=== PATIENT | male | born 1970 | race African-American/Black ===

== ENCOUNTER 2020-03-26 13:03 | Outpatient (CLI) | payer BC, OTHER ==
--- NOTE | 2020-03-26 13:06 | XRAY Report ---
PROCEDURE: Wrist 3 View BILAT INDICATIONS: R AND L WRIST PX TECHNIQUE: 3 views of the bilateral wrists were acquired (. COMPARISON: None acute FINDINGS: Bones: No fractures or dislocations. No suspicious bony lesions. Note is made of bilateral distal radius fracture fixation comprised of fixation plates and transverse multiple fixation screws greater on the right than the left. Near-anatomic alignment established across the fracture planes. Scaphoid view: Not obtained but the scaphoid visualized shows no definite fracture. Soft tissues: No suspicious soft tissue calcifications. IMPRESSION: Somewhat limited quality of visualization due to overlying cast material bilaterally. Bilateral dista l radius fracture fixation rods has been performed utilizing lateral fixation plates and multiple tra nsverse screws establishing near-anatomic alignment for healing. Reviewed by: Lyndon Prieot MD on 03/26/2020 1:05 PM [facility] Approved by: Lyndon Prieto MD on 03/26/2020 1:05 PM PST Station ID: [id number]
== END 2020-03-26 23:59 | disposition home or self-care (01) ==
LOC: DI.N 13:03
PROVIDERS: ATTEND Orthopaedic Surgery
DX: M25.531 Pain in right wrist (principal); M25.532 Pain in left wrist; S52.502D Unspecified fracture of the lower end of left radius, subsequent encounter for closed fracture with routine healing; S52.501D Unspecified fracture of the lower end of right radius, subsequent encounter for closed fracture with routine healing

== ENCOUNTER 2020-04-30 11:28 | Outpatient (CLI) | payer BC, OTHER ==
--- NOTE | 2020-04-30 10:41 | XRAY Report ---
PROCEDURE: Wrist 3 View BILAT INDICATIONS: R AND L WRIST PX TECHNIQUE: 3 views of the wrist were acquired. COMPARISON: 03/26/2020 FINDINGS: Unchanged expected postoperative alignment of plate and screw fixation of the distal radius bilateral ly. Hardware appears intact. No evidence of loosening. Soft tissues: No suspicious soft tissue calcifications. IMPRESSION: Unchanged alignment Reviewed by: Alejandro Velez MD on 04/30/2020 10:40 AM [facility] Approved by: Alejandro Velez MD on 04/30/2020 10:40 AM [facility] Station ID: [id number]
== END 2020-04-30 23:59 | disposition home or self-care (01) ==
LOC: DI.N 11:28
PROVIDERS: ATTEND Orthopaedic Surgery
DX: M25.532 Pain in left wrist (principal); M25.531 Pain in right wrist

== ENCOUNTER 2020-06-04 07:16 | Outpatient (CLI) | payer OTHER ==
--- NOTE | 2020-06-04 09:24 | XRAY Report ---
PROCEDURE: Finger(s) RT INDICATIONS: R FINGER DEFORMITY, 3RD DIGIT TECHNIQUE: PA view of the hand and 2 views of the right middle finger obtained. COMPARISON: None. FINDINGS: Bones: A small osseous fragment is seen at the volar aspect of the base of the third middle phalanx t hat most likely represents a small avulsion fracture of uncertain age. The margins of the ossificatio n along the fracture line do not definitely appear corticated. Postsurgical changes are seen at the d istal radius. Mild degenerative changes are seen at the second distal interphalangeal joint. Soft tis sues: No suspicious soft tissue calcifications. Mild soft tissue edema is seen surrounding the thir d proximal interphalangeal joint. IMPRESSION: Small osseous avulsion fracture at the volar base of the third middle phalanx of uncertain age. Reviewed by: Dylan Herrera MD on 06/04/2020 9:23 AM PST Approved by: Dylan Herrera MD on 06/04/2020 9:23 AM PST Station ID: [id number]
== END 2020-06-04 23:59 | disposition home or self-care (01) ==
LOC: DI.N 07:16
PROVIDERS: ATTEND Orthopaedic Surgery
DX: S62.612A Displaced fracture of proximal phalanx of right middle finger, initial encounter for closed fracture (principal)